=== PATIENT | female | born 1975 | race Caucasian/White ===

== ENCOUNTER 2017-01-12 18:16 | Inpatient (IN) | payer OTHER ==
[2017-01-12] MEDS ORDERED: OLIVE OIL 118 ML BTL ONE (18:32)
[2017-01-12] MEDS ORDERED: LIDOCAINE 1% 300 MG/30 ML SDV ONE (18:32)
[2017-01-12] MEDS ORDERED: AMMONIA AROMATIC 1 EACH AMP IH ONE (18:32)
[2017-01-12] MEDS ORDERED: MISOPROSTOL 200 MCG TAB ONE (18:33)
[2017-01-12] MEDS ORDERED: TERBUTALINE SULFATE 1 MG/ML VIAL ONE (18:33)
[2017-01-12] MEDS ORDERED: TERBUTALINE SULFATE 1 MG/ML VIAL IV PRN (18:40)
[2017-01-12] MEDS ORDERED: OXYTOCIN/RINGERS LACTATE 1,000 ML IV PRN (18:40)
[2017-01-12] MEDS ORDERED: OLIVE OIL 118 ML BTL MISC PRN (18:40)
[2017-01-12] MEDS ORDERED: LR 1,000 ML IV PRN (18:40)
[2017-01-12] MEDS ORDERED: EPSOM SALT 454 GM TP PRN (18:40)
[2017-01-12 19:00] LABS: % IMMATURE GRANULYOCYTES 0.5 % (0.0-1.1); ABSOLUTE IMMATURE GRANULOCYTES 0.06 10^3/uL (0.00-0.10); ADD DIFF? NO; ADD MORPH? NO; ADD SCAN? NO; ATYPICAL LYMPHOCYTE FLAG 30 (0-99); FRAGMENT RBC FLAG 0 (0-99); HEMATOCRIT 41.6 % (38.0-47.0); HEMOGLOBIN 14.4 g/dL (12.6-16.3); LEFT SHIFT FLG 0 (0-99); LIPEMIA HEMOLYSIS FLAG 90 (0-99); MEAN CELL HEMOGLOBIN 33.7 pg (27.9-34.1); MEAN CELL HEMOGLOBIN CONCENTR. 34.6 g/dL (32.4-36.7); MEAN CELL VOLUME 97.4 fL (81.5-99.8); MEAN PLATELET VOLUME 12.7 fL (8.7-11.7); PLATELET CLUMPS FLAG 20 (0-99); PLATELET COUNT 132 10^3/uL (150-400); RED BLOOD CELL COUNT 4.27 10^6/uL (4.18-5.33); RED CELL DISTRIBUTION WIDTH 13.5 % (11.5-15.2)
[2017-01-12] MEDS ORDERED: fentaNYL 2MCG/ML/BUP 0.1% RTU 100 ML BAG EP ONE (19:05)
[2017-01-12] MEDS ORDERED: BUPIVACAINE 0.25% 30 ML SDV ONE (19:05)
[2017-01-12] MEDS ORDERED: PHENYLEPHRINE HCL 100 MCG/ML SYR ONE (19:05)
[2017-01-12] MEDS ORDERED: fentaNYL 100 MCG/2 ML INJ ONE (19:06)
[2017-01-12] MEDS ORDERED: NALOXONE HCL 0.4 MG/ML INJ IVP PRN (19:46)
[2017-01-12] MEDS ORDERED: ONDANSETRON 4 MG/2 ML VIAL IVP PRN (19:46)
[2017-01-12] MEDS ORDERED: PHENYLEPHRINE HCL 100 MCG/ML SYR IVP PRN (19:46)
[2017-01-12] MEDS ORDERED: LR 500 ML IV SCH (20:00)
[2017-01-12] MEDS ORDERED: fentaNYL 2MCG/ML/BUP 0.1% RTU 100 ML EP SCH (20:00)
--- NOTE | 2017-01-12 21:19 | GHP ---
[f rep st] PREOP HISTORY AND PHYSICAL DATE OF ADMISSION: 01/12/2017 ADMISSION DIAGNOSES: 1. Intrauterine at 38 and 5/7 weeks gestation. 2. Active labor. HISTORY OF PRESENT ILLNESS: The patient is a 41-year-old 3, para 2-0-0-2, who had her membr anes swept earlier this week. She came into the office this morning for a small amount of vaginal b leeding. She was found to be 4-5 cm dilated. A nonstress test was reactive. She was having occasi onal contractions, so she was sent home. She began having contractions increasing in frequency and intensity, and she was seen back in the office at 4 o'clock in the afternoon. She was 5 cm dilated, had made slight cervical change from earlier, but it was decided to ambulate for an hour, and came back an hour later. She did make a slight cervical change membranes were swept, and the management options were reviewed with the patient. The patient was informed that because she was less than 39 weeks, we could not augment her. So, she needed to progressed in active labor on her own, which the patient did. The patient began having contractions increasing in frequency and intensity shortly a fter leaving our office. She arrived to Labor and Delivery, and was 5 cm, but huffing and puffing a nd breathing through contractions. Her membranes spontaneously ruptured. The patient did request a nd received an epidural, which provided adequate pain relief. PAST MEDICAL HISTORY: History of asthma, history of allergies, history of basal cell skin cancer, e czema. MEDICATIONS: vitamins and iron. PAST SURGICAL HISTORY: None. ALLERGIES: No known drug allergies. SOCIAL HISTORY: The patient is a [id number] mom. She is . She lives with her and her 2 other children. She denies tobacco, alcohol, or drug use. FAMILY MEDICAL HISTORY: Noncontributory. VISCOSITY TESTER HISTORY: Menarche age 19, periods every 28 days, lasting 7 days. She is a 3, para 2 -0-0-2. In 02/2010, she had a spontaneous vaginal delivery of an 8 pound 5 ounce male infant at 41 weeks gestation. She was GBS positive. In 05/2012, she had a spontaneous vaginal delivery of an 8 pound 9 ounce female at 41 weeks with a history of rapid labor. She was GBS positive. Current preg amna has been uncomplicated with the exception of migraines in , which have since improved . The patient denies any history of any abnormal Pap smears or sexually transmitted diseases. REVIEW OF SYSTEMS: A 10-point review of systems is negative. She denies any headache, changes in v ision. There is good movement. Prior to admission denies any vaginal bleeding or loss of flu id. PHYSICAL EXAM: VITAL SIGNS: Stable. GENERAL APPEARANCE: Alert and oriented x3. NEURO: Exam is unremarkable. NECK: Mobile and supple. HEART: Rate is regular, regular. LUNGS: Clear to auscul tation bilaterally. ABDOMEN: Gravid, nondistended, nontender. EXTREMITIES: Reveal no calf tender ness or edema. PELVIC: She was 8 cm dilated on last exam, 100% effaced, -2 station. Infant in the vertex presentation. She is having contractions every 4-5 minutes, and having heart tracings with positive accelerations. LABORATORY DATA: labs: Blood type O positive. Antibody screen negative. Rubella low and immune. GBS is negative. HBsAg negative. A 50 g glucose was negative. Her Verifi screen was neg ative. ASSESSMENT AND PLAN: A 41-year-old, 3, para 2-0-0-2, who is 38 and 5/7 weeks gestation who presented in active labor. She has received an epidural, and had spontaneous rupture. She will be managed expectantly. /[id number]/MODL
--- NOTE | 2017-01-12 21:39 | OBDEL ---
Info Type: Vaginal GBS+: No Indications for Delivery: Spontaneous Labor, SROM Vaginal Delivery - Labor and Delivery Onset of Contractions Date: 01/12/17 Onset of Contractions Time: 11:30 Onset of Contractions Type: Spontaneous Rupture of Membranes Date: 01/12/17 Rupture of Membranes Time: 19:26 Rupture of Membranes Type: Spontaneous Amniotic Fluid Color: Clear Dilation Complete Date: 01/12/17 Dilation Complete Time: 20:51 Placenta Delivery Date: 01/12/17 (retained placenta) Placenta Delivery Time: 21:08 Total Hours of Labor: 9 Laceration: 2nd Degree Repair: 3-0 Vaginal Sponge Count Correct: Yes Vaginal Needle Count Correct: Yes Vaginal Sweep Performed: Yes EBL: 400 Delivery Events: Nuchal Cord (x2) Data [facility] Delivery Date: 01/12/17 Delivery Time: 20:58 BART: 01/21/17 Gestational Age: 39 week(s) and 4 day(s) Sex of Infant: Male Score (1 Min): 8 Score (5 Min): 9 ICD10 Worksheet Patient Problems: Problems Problem Status Onset Delivery normal Acute
[2017-01-12] MEDS: IBUPROFEN 600 MG TAB PO PRN (21:40)
[2017-01-12] MEDS ORDERED: HYDROCORTISONE 0.5% CREAM TP PRN (21:41)
[2017-01-12] MEDS ORDERED: ACETAMINOPHEN 325 MG TAB PO PRN (21:41)
[2017-01-12] MEDS ORDERED: HYDROCODONE/APAP 5/325 TAB PO PRN (21:41)
[2017-01-13] MEDS: IBUPROFEN 600 MG TAB PO PRN ×4 (03:47→22:06)
[2017-01-13 08:53] VITALS: RESP 16
--- NOTE | 2017-01-13 08:54 | OBPP ---
Progress Note Assessment/Plan: Assessment: ppd# 1 s/p breast feeding anemia Plan: iron routine post care 01/13/17 08:50 Subjective: patient is doing well. pain is well controlled. normal lochia. denies headache or changes in vision. breast feeding is going well. ambulating. voiding without difficulty. mood stable. Objective: 01/13/17 03:53 Patient ABO/Rh O POSITIVE 01/12/17 18:40 Temp Pulse Resp BP Pulse Ox 36.2 C 50 L 14 103/64 94 01/13/17 03:08 01/13/17 03:08 01/13/17 03:08 01/13/17 03:08 01/13/17 03:08 Uterine Position/Fundal Height: Umbilicus -2 Uterine Tone: Firm Physical Exam - Physical Exam General Appearance: WD/WN, alert, no apparent distress Respiratory: chest non-tender, lungs clear, normal breath sounds Cardiac/Chest: normal peripheral pulses, regular rate, rhythm Abdomen: normal bowel sounds, hypoactive bowel sounds, non-tender Extremities: normal range of motion, non-tender, normal inspection, normal capillary refill Skin: normal color, warm/dry Neuro/Psych: no motor/sensory deficits, alert, normal mood/affect, oriented x 3
[2017-01-13] MEDS: DOCUSATE SODIUM 100 MG CAP PO PRN ×2 (09:53→22:06)
[2017-01-13] MEDS: IRON POLYSAC/IRON HEME 28 MG TAB PO SCH (09:53)
[2017-01-13 20:08] VITALS: O2SAT 95
[2017-01-14] MEDS: IBUPROFEN 600 MG TAB PO PRN (06:27)
[2017-01-14 08:33] VITALS: BP 103/67; PULSE 73; TEMP 97.9
[2017-01-14] MEDS: DOCUSATE SODIUM 100 MG CAP PO PRN (10:46)
[2017-01-14] MEDS: IRON POLYSAC/IRON HEME 28 MG TAB PO SCH (10:46)
[2017-01-14] MEDS ORDERED: MEASLES,MUMPS&RUBELLA VACC/PF 0.5 ML VIAL SC ONE (10:54)
--- NOTE | 2017-01-14 11:44 | OBPP ---
Progress Note Assessment/Plan: Assessment: ppd# 2 s/p breast feeding anemia rubella low positive Plan: iron routine post care discharge instructions mmr 01/14/17 11:44 Subjective: patient is doing well. pain is well controlled. normal lochia. breast feeding is going well. denies headache and changes in vision. mood great. Objective: 01/13/17 03:53 Patient ABO/Rh O POSITIVE 01/12/17 18:40 Temp Pulse Resp BP Pulse Ox 36.6 C 73 16 103/67 95 01/14/17 08:05 01/14/17 08:05 01/14/17 08:05 01/14/17 08:05 01/14/17 08:05 Physical Exam - Physical Exam General Appearance: WD/WN, alert, no apparent distress Neck: non-tender, full range of motion Respiratory: chest non-tender, lungs clear, normal breath sounds Cardiac/Chest: normal peripheral pulses, regular rate, rhythm Abdomen: normal bowel sounds, hypoactive bowel sounds, other (fundus firm and non tender) Extremities: normal range of motion, non-tender, normal inspection, normal capillary refill Back: Normal inspection Skin: normal color, warm/dry Neuro/Psych: no motor/sensory deficits, alert, normal mood/affect, oriented x 3
--- NOTE | 2017-01-14 11:48 | OBGCSDC ---
General Delivery Information - General Info : 3 Para: 3 Delivery Physician/CNM: Inga Crawford Admission Date: 01/12/17 Labs: Patient ABO/Rh O POSITIVE 01/12/17 18:40 Hct 32.5 % (38.0-47.0) L 01/13/17 03:53 Vaginal - Diagnosis Labor: Spontaneous Rupture of Membranes Type: Spontaneous Amniotic Fluid Color: Clear Laceration: 2nd Degree Repair: 3-0 Delivery Events: Nuchal Cord (x2) - Operations/Procedures L&D Analgesia/Anesthesia Type: Epidural - Hospital Course Antepartum: negative verify. uncomplicated course. prodromal labor at 5 cm. membranes swept. progressed into active labor. Intrapartum: arrived still 5 cm. strong regular contractions. cervix changed. DUSTIN. SROM. rapid progress. pushed well. : doing well. mmr given. breast feeding. plans iud. rectus distasis - Delivery L&D Analgesia/Anesthesia Type: Epidural C[place]bert Data [facility] Delivery Date: 01/12/17 Delivery Time: 20:58 BART: 01/21/17 Gestational Age: 39 week(s) and 0 day(s) Sex of : Male Cuthbert Weight (gm): 2970 g Score (1 Min): 8 Score (5 Min): 9 Discharge Information - Discharge Information Discharge Medications: Iron Instruction/Follow Up: See Instruction Sheet, Four Weeks, Six Weeks Discharge Physician/CNM: Inga Crawford
== END 2017-01-14 12:30 | disposition home or self-care (01) | DRG 775 ==
LOC: FLD 18:16 → FOB 23:58
PROVIDERS: ADMIT Obstetrics & Gynecology; ATTEND Obstetrics & Gynecology
PROC: 10E0XZZ Delivery of Products of Conception, External Approach (ICD-10-PCS; principal; 2017-01-12)
PROC: 0KQM0ZZ Repair Perineum Muscle, Open Approach (ICD-10-PCS; principal; 2017-01-12)
DX: O70.1 Second degree perineal laceration during delivery (principal); O69.81X0 Labor and delivery complicated by cord around neck, without compression, not applicable or unspecified; O90.81 Anemia of the puerperium; O09.523 Supervision of elderly multigravida, third trimester; Z3A.38 38 weeks gestation of pregnancy; Z37.0 Single live birth
CPT/HCPCS: J2370; J2590; J3010; J3105